=== PATIENT | female | born 1945 | race Caucasian/White ===

== ENCOUNTER 2020-10-25 15:06 | Emergency (ER) | payer OTHER ==
[~2020-10-25] VITALS: Ht 167.6 cm; Wt 85.7 kg
[~2020-10-25 15:06] MED LIST: ALBUTEROL SULFAT4 MG PO; ASPIRIN81 MG PO; ATIVAN2 MG PO; CARAFATE1 GM PO; DEPAKOTE250 MG PO; DOXYCYCLINE HY100 M4 PO; FLUOXETINE HCL20 M1 PO; LEVOFLOXACIN750 MG PO; LEVOTHYROXINE75 MCG PO; LORAZEPAM1 MG PO; MONTELUKAST SOD10 MG PO; NORCO 5-325 TA1 EACH PO; OXYBUTYNIN CHLOR5 MG PO; PANTOPRAZOLE SO40 MG PO; PEPCID20 MG PO; PRAVASTATIN SOD20 MG PO; PREDNISONE20 MG PO; PROZAC40 MG PO; REGLAN10 MG PO
[2020-10-25] MEDS ORDERED: METHYLPREDNISOLONE SOD SUCC 125 MG/2ML VIAL IV STA (15:24)
[2020-10-25] MEDS ORDERED: ALBUTEROL/IPRATROPIUM 3 ML NEB NEB ONE ×2 (15:30→19:00)
[2020-10-25 15:40] LABS: BASOPHILS # (AUTO) 0.1 (0.0-0.1); BASOPHILS % 0.4 % (0.0-1.0); EOSINOPHILS # (AUTO) 0.4 (0.0-0.4); EOSINOPHILS % 3.1 % (0.0-6.0); HEMOGLOBIN 14.3 g/dL (12.0-16.0); LYMPHOCYTES # (AUTO) 1.6 (1.0-3.2); LYMPHOCYTES % 13.7 % (18.0-39.1); MEAN CORPUSCULAR HEMOGLOBIN 30.9 pg (28-32); MEAN CORPUSCULAR HGB CONC 31.8 g/dL (31-35); MEAN CORPUSCULAR VOLUME 97.2 fL (81-99); MONOCYTES % 8.3 % (4.4-11.3); NEUTROPHILS # (AUTO) 8.6 (2.1-6.9); NEUTROPHILS % 74.1 % (38.7-80.0); PLATELET COUNT 217 x10e3/uL (140-360); RED BLOOD COUNT 4.63 x10e6/uL (3.6-5.1); RED CELL DISTRIBUTION WIDTH 13.1 % (11.7-14.4)
[2020-10-25 15:46] LABS: INR 0.9; PROTHROMBIN TIME 12.7 seconds (11.9-14.5)
[2020-10-25 15:47] LABS: PARTIAL THROMBOPLASTIN TIME 27.2 seconds (23.8-35.5)
[2020-10-25 15:57] LABS: ALBUMIN 3.8 g/dL (3.5-5.0); ANION GAP 15.5 mmol/L (8-16); CALCIUM 9.1 mg/dL (8.4-10.2); CREATININE, SERUM 0.97 mg/dL (0.57-1.11); POTASSIUM 4.5 mmol/L (3.5-5.1)
[2020-10-25 16:03] LABS: CREATINE KINASE MB 1.9 ng/mL (0-5.0)
[2020-10-25] MEDS ORDERED: ALBUTEROL/IPRATROPIUM 3 ML NEB ONE (19:15)
[2020-10-25 19:19] VITALS: BP 150/82
== END 2020-10-25 19:22 | disposition home or self-care (01) ==
LOC: ER 15:14
DX: J44.1 Chronic obstructive pulmonary disease with (acute) exacerbation (principal); J45.909 Unspecified asthma, uncomplicated; Z87.891 Personal history of nicotine dependence
CPT/HCPCS: 36415; 71045; 80053; 82550; 82553; 83735; 83880; 84484; 85025; 85610; 85730; 87040; 93005; 94640 ×2; 99283; J2930; U0002